=== PATIENT | male | born 1945 | race Caucasian/White ===

== ENCOUNTER → 2020-07-05 14:35 | Outpatient (BNVA) | payer OTHER, SELFPAY | PROVIDERS: PCP Internal Medicine; Visit Provider Hospitalist | DX: J44.9 Chronic obstructive pulmonary disease, unspecified (principal); J90 Pleural effusion, not elsewhere classified | CPT/HCPCS: 99212 ==

== ENCOUNTER → 2020-08-30 14:48 | Outpatient (BNVA) | payer OTHER, SELFPAY | PROVIDERS: PCP Internal Medicine; Visit Provider Hospitalist ==

== ENCOUNTER 2020-10-18 15:52 | Emergency (ER) | payer OTHER, SELFPAY ==
--- NOTE | 2020-10-18 | ECG_ITS ---
Test Reason : AMS Blood Pressure : / mmHG Vent. Rate : 072 BPM Atrial Rate : 072 BPM P-R Int : 202 ms QRS Dur : 134 ms QT Int : 412 ms P-R-T Axes : 000 -30 -20 degrees QTc Int : 451 ms Sinus rhythm with marked sinus arrhythmia Left axis deviation Right bundle branch block Inferior infarct , age undetermined Abnormal ECG No previous ECGs available Referred By: Generic ED Physician Electronically Signed By:DANUTA POLK
[2020-10-18 16:00] VITALS: BP 117/56; PULSE 71; RESP 12; TEMP 36.8; O2SAT 100; BMI 28.7
[2020-10-18 16:06] LABS: Glucose, Whole Blood 126 mg/dL (60-115)
--- NOTE | 2020-10-18 16:16 | ED_ITS ---
HPI - Altered Mental Status General Chief Complaint: Altered Mental Status Stated Complaint: UNRESPONSIVE Time Seen by Provider: 10/18/20 16:15 Source: EMS Mode of arrival: EMS Limitations: altered mental status History of Present Illness HPI narrative: Patient's history of dementia was at [facility] di scharged today to retirement after ureteric stent placement and UTI patient really is in the hospital but became back to baseline but while transferring to retirement patient became more confused and delirious brought to the ER for re-evaluation on arrival patient was sleepy arousable on verbal stimuli had some water in the ER Related Data Home Medications Medication Instructions Recorded Confirmed albuterol sulfate 90 mcg/actuation 2 puff INHALATION Q6H PRN 07/05/20 08/30/20 aerosol inhaler amlodipine 5 mg tablet 5 mg PO DAILY 07/05/20 08/30/20 docusate sodium 250 mg capsule 250 mg PO DAILY 07/05/20 08/30/20 duloxetine 30 mg capsule,delayed 30 mg PO DAILY 07/05/20 08/30/20 release gabapentin 600 mg tablet 600 mg PO DAILY 07/05/20 08/30/20 lidocaine 4 % topical patch 1 patch TOPICAL DAILY PRN 07/05/20 08/30/20 lisinopril 20 mg tablet 20 mg PO DAILY 07/05/20 07/05/20 omeprazole 20 mg capsule,delayed 20 mg PO DAILY 07/05/20 08/30/20 release oxycodone 5 mg tablet 5 mg PO Q8H PRN 07/05/20 08/30/20 tiotropium 2.5 mcg-olodaterol 2.5 2 puff INHALATION DAILY 07/05/20 08/30/20 mcg/actuation mist for inhalation trazodone 50 mg tablet 50 mg PO BEDTIME PRN 07/05/20 08/30/20 Allergies Allergy/AdvReac Type Severity Reaction Status Date / Time No Known Allergies Allergy Verified 08/30/20 16:28 Review of Systems Review of Systems: Yes Unobtainable due to mental status Neurologic: Reports confusion Psychiatric: Psychiatric: Reports confusion FOR[facility] Past Medical History Medical History Chronic respiratory failure COPD (chronic obstructive pulmonary disease) Pleural effusion Social History Social History Smoking Status: Former smoker Tobacco Type: Cigarette Years Smoked: 30 years Advance Directives: No Advance Directives Information Provided: Yes Physical Exam Vital Signs: Vital Signs: Last Vital Signs Temp 98.2 F 10/18/20 16:00 Pulse 74 10/18/20 18:13 Resp 20 10/18/20 18:13 BP 168/78 H 10/18/20 20:23 Pulse Ox 91 L 10/18/20 18:13 Oxygen Flow Rate 4 10/18/20 16:00 Body Mass Index 28.7 Const: General: no acute distress, confusion, lethargic and patient obtunded Orientation/consciousness: confusion, patient obtunded and lethargic HENMT: Head: Yes normocephalic and Yes atraumatic General nose exam: Normal external nose present Eyes: General: appearance normal, both eyes and all related structures Conjunctivae: conjunctivae normal Sclerae: sclerae normal Pupils: Equal, round and reactive pupils present Neck: Neck: Yes normal visual inspection and Yes full ROM Chest: Chest palpation & inspection: normal inspection of the chest and normal palpation of entire chest wall Resp: Effort & Inspection: normal respiratory effort Auscultation: clear to auscultation bilaterally, no crackles, no rales and no rhonchi Cardio: Palpation: normal PMI Rate: regular rate Rhythm: regular rhythm Heart sounds: S1 normal heart sound present and S2 normal heart sound present Bruits: Abdominal aortic bruit present Peripheral pulses: Peripheral pulses 2+ throughout GI: Inspection: Yes normal to inspection Palpation (GI): Abdominal aortic bruit present, Soft to palpation and nontender Auscultation: normal bowel sounds : General: Yes no CVA tenderness Back/Spine/Pelvis: Back: no CVA tenderness Thoracic/Lumbar Spine: thoracic and lumbar spine normal to inspection, No thoracic spinal tenderness and No lumbar spinal tenderness Skin: General skin exam: no rashes or lesions noted Neuro: General: confusion and patient obtunded Cranial nerves: Yes Equal, round and reactive pupils present and Yes Normal gag reflex present MDM - Altered Mental Status MDM Narrative Medical decision making narrative: Patient with status post Left ureteric stent placement/UTI on 10/09 just treated at [facility] for 1 week and transferred to rehab came back for being obtunded. On arrival patient was in deep sleep after few minutes he woke up and was communicating well at his baseline. Case discussed patient's daughter patient has similar episode when he was admitted at [facility] with UTI. Will keep him for observation overnight and plan to send him back to retirement in the morning at this time patient vitals and labs are stable Lab Data Result diagrams: 10/18/20 16:30 10/18/20 16:30 Labs: Lab Results 10/18/20 10/18/20 10/18/20 Range/Units 16:02 16:30 16:30 WBC 6.0 (4.8-10.8) X10*3/uL RBC 4.95 (4.60-5.80) X10*6/uL Hgb 13.0 L (14.0-18.0) g/dl Hct 42.7 (42-52) % MCV 86.3 (80-98) fL MCH 26.3 L (27.0-33.0) pg MCHC 30.4 L (31.0-36.0) g/dl RDW 13.9 (11.0-16.0) % Plt Count 290 (160-400) X10*3/uL MPV 10.2 (9.4-12.4) fL Immature Gran % (Auto) 0.3 (0.0-0.4) % Neut % (Auto) 78.7 H (45-73) % Lymph % (Auto) 8.3 L (20-40) % [place] % (Auto) 8.6 (2-11) % Eos % (Auto) 3.3 (0-4) % Baso % (Auto) 0.8 (0-2) % Lymph # (Auto) 0.5 L (1.2-4.9) X10*3/uL [place] # (Auto) 0.5 (0.1-1.2) X10*3/uL Eos # (Auto) 0.2 (0.0-0.4) X10*3/uL Baso # (Auto) 0.1 (0.0-0.2) X10*3/uL Abs Immat Gran (auto) 0.02 (0.00-0.03) X10*3/uL Absolute Neuts (auto) 4.8 (2.0-8.3) X10*3/uL Absolute Nucleated RBC 0.000 (0.0-0.012) X10*3/uL Nucleated RBC % (auto) 0.0 (0.0-0.2) /100WBC Smear Tech's Comments VERIFIED Sodium 143 (135-145) mmol/L Potassium 4.3 (3.3-5.1) mmol/L Chloride 104 (96-108) mmol/L Carbon Dioxide 29 (22-29) mmol/L Anion Gap 14 (12-20) BUN 15 (9-16) mg/dL Creatinine 0.70 (0.5-1.4) mg/dL Estim Creat Clear Calc 100.1 Estimated GFR > 60 POC Glucose 126 H (60-115) mg/dL Random Glucose 136 H (60-115) mg/dL Calcium 8.9 (8.4-10.2) mg/dL Total Bilirubin 0.5 (0.0-1.0) mg/dL AST 19 (5-37) U/L ALT 10 (0-40) U/L Alkaline Phosphatase 95 (39-117) U/L Total Protein 6.0 L (6.5-8.0) g/dL Albumin 3.4 L (3.5-5.0) g/dL Urine Color Urine Appearance Urine pH (5.0-8.0) Ur Specific [place] (1.005-1.025) Urine Protein (NEG-TRACE) MG/DL Urine Glucose (UA) (NEG) MG/DL Urine Ketones (NEG) MG/DL Urine Blood (NEG) Urine Nitrite (NEG) Ur Leukocyte Esterase (NEG) Urine RBC (0) /HPF Urine WBC (0-4) /HPF Ur Squamous Epith Cells /LPF Urine Bacteria /LPF Hyaline Casts /LPF Urine Mucus /LPF /12/03 Range/Units 17:06 WBC (4.8-10.8) X10*3/uL RBC (4.60-5.80) X10*6/uL Hgb (14.0-18.0) g/dl Hct (42-52) % MCV (80-98) fL MCH (27.0-33.0) pg MCHC (31.0-36.0) g/dl RDW (11.0-16.0) % Plt Count (160-400) X10*3/uL MPV (9.4-12.4) fL Immature Gran % (Auto) (0.0-0.4) % Neut % (Auto) (45-73) % Lymph % (Auto) (20-40) % [place] % (Auto) (2-11) % Eos % (Auto) (0-4) % Baso % (Auto) (0-2) % Lymph # (Auto) (1.2-4.9) X10*3/uL [place] # (Auto) (0.1-1.2) X10*3/uL Eos # (Auto) (0.0-0.4) X10*3/uL Baso # (Auto) (0.0-0.2) X10*3/uL Abs Immat Gran (auto) (0.00-0.03) X10*3/uL Absolute Neuts (auto) (2.0-8.3) X10*3/uL Absolute Nucleated RBC (0.0-0.012) X10*3/uL Nucleated RBC % (auto) (0.0-0.2) /100WBC Smear Tech's Comments Sodium (135-145) mmol/L Potassium (3.3-5.1) mmol/L Chloride (96-108) mmol/L Carbon Dioxide (22-29) mmol/L Anion Gap (12-20) BUN (9-16) mg/dL Creatinine (0.5-1.4) mg/dL Estim Creat Clear Calc Estimated GFR POC Glucose (60-115) mg/dL Random Glucose (60-115) mg/dL Calcium (8.4-10.2) mg/dL Total Bilirubin (0.0-1.0) mg/dL AST (5-37) U/L ALT (0-40) U/L Alkaline Phosphatase (39-117) U/L Total Protein (6.5-8.0) g/dL Albumin (3.5-5.0) g/dL Urine Color BROWN Urine Appearance CLOUDY Urine pH 5.5 (5.0-8.0) Ur Specific [place] 1.025 (1.005-1.025) Urine Protein 2+ H (NEG-TRACE) MG/DL Urine Glucose (UA) NEG (NEG) MG/DL Urine Ketones NEG (NEG) MG/DL Urine Blood 3+ H (NEG) Urine Nitrite NEG (NEG) Ur Leukocyte Esterase 1+ H (NEG) Urine RBC TNTC H (0) /HPF Urine WBC 1-4 (0-4) /HPF Ur Squamous Epith Cells TRACE /LPF Urine Bacteria NONE /LPF Hyaline Casts 0-2 /LPF Urine Mucus TRACE /LPF Discharge Plan Discharge Clinical Impression: Delirium due to general medical condition Patient Disposition: Xfer [facility] Instructions: Altered Mental Status (ED) Additional Instructions: Patient's symptoms are from metabolic encephalopathy from recent hospitalization continue patient treatment as advised from [facility] and watch his vitals Prescriptions: No Action Stiolto Respimat 2.5-2.5 mcg/actuation mist 2 puff inhalation DAILY RF: 0 albuterol sulfate [ProAir HFA] 90 mcg/actuation HFA aerosol inhaler 2 puff inhalation Q6H PRNRF: 0 oxycodone 5 mg tablet 5 mg PO Q8H PRNRF: 0 gabapentin 600 mg tablet 600 mg PO DAILY RF: 0 trazodone 50 mg tablet 50 mg PO BEDTIME PRNRF: 0 duloxetine 30 mg capsule,delayed release(DR/EC) 30 mg PO DAILY RF: 0 lisinopril 20 mg tablet 20 mg PO DAILY RF: 0 amlodipine 5 mg tablet 5 mg PO DAILY RF: 0 omeprazole 20 mg capsule,delayed release(DR/EC) 20 mg PO DAILY RF: 0 docusate sodium 250 mg capsule 250 mg PO DAILY RF: 0 lidocaine 4 % adhesive patch,medicated 1 patch topical DAILY PRNRF: 0
[2020-10-18 16:39] VITALS: BP 131/66; PULSE 70; RESP 18; O2SAT 92
[2020-10-18 16:41] LABS: Basophils Absolute Auto 0.1 X10*3/uL (0.0-0.2); Basophils Percent Auto 0.8 % (0-2); Eosinophils Absolute Auto 0.2 X10*3/uL (0.0-0.4); Eosinophils Percent Auto 3.3 % (0-4); Hematocrit 42.7 % (42-52); Imm Gran Abs Auto 0.02 X10*3/uL (0.00-0.03); Imm Gran Pct Auto 0.3 % (0.0-0.4); Lymphocytes Absolute Auto 0.5 X10*3/uL (1.2-4.9); Lymphocytes Percent Auto 8.3 % (20-40); MANUAL DIFF FLAG SCAN; Mean Corpuscular HGB Conc 30.4 g/dl (31.0-36.0); Mean Corpuscular Hemoglobin 26.3 pg (27.0-33.0); Mean Corpuscular Volume 86.3 fL (80-98); Mean Platelet Volume 10.2 fL (9.4-12.4); Monocytes Absolute Auto 0.5 X10*3/uL (0.1-1.2); Monocytes Percent Auto 8.6 % (2-11); Neutrophils Absolute Auto 4.8 X10*3/uL (2.0-8.3); Neutrophils Percent Auto 78.7 % (45-73); Platelet Count 290 X10*3/uL (160-400); Red Blood Count 4.95 X10*6/uL (4.60-5.80); Red Cell Distribution Width 13.9 % (11.0-16.0); SCAN SMEAR FLAG 1
[2020-10-18] MEDS: 0.9 % Sodium Chloride 1,000 ML 999 ML IVCONT (17:02)
[2020-10-18 17:09] LABS: SLIDE REVIEW VERIFIED
[2020-10-18 17:12] LABS: Alanine Aminotransferase 10 U/L (0-40); Albumin Level 3.4 g/dL (3.5-5.0); Alkaline Phosphatase 95 U/L (39-117); Anion Gap 14 (12-20); Aspartate Amino Transferase 19 U/L (5-37); Bilirubin Total 0.5 mg/dL (0.0-1.0); Blood Urea Nitrogen 15 mg/dL (9-16); Calcium 8.9 mg/dL (8.4-10.2); Carbon Dioxide 29 mmol/L (22-29); Chloride 104 mmol/L (96-108); Creatinine Clr Calc Pharmacy 100.1; Estimated Glomerular Filt Rate > 60; Glucose Random 136 mg/dL (60-115); Potassium 4.3 mmol/L (3.3-5.1); Sodium 143 mmol/L (135-145)
[2020-10-18 17:21] LABS: Glucose Urine UA NEG (NEG); Leukocyte Esterase Urine 1+ (NEG); Nitrite Urine NEG (NEG); PH 5.5 (5.0-8.0); Specific Gravity - Urine 1.025 (1.005-1.025); UACC Culture Trigger YES; Urine Blood 3+ (NEG); Urine Ketones NEG (NEG); Urine Protein 2+ MG/DL (NEG-TRACE)
[2020-10-18 17:22] LABS: Appearance Urine CLOUDY; Color Urine BROWN
[2020-10-18 17:39] LABS: Hyaline Casts Urine 0-2 /LPF; Mucus Urine TRACE /LPF; RBC Urine TNTC /HPF (0); Squamous Epithelial Cell Urine TRACE /LPF
[2020-10-18 18:13] VITALS: BP 152/83; PULSE 74; RESP 20; O2SAT 91
--- NOTE | 2020-10-18 18:16 | MHC.CM.ED ---
CM met with pt at request of . Pt was d/c from [facility] today s/p ureteral stent/UTI with referral to [facility] for STR. CM spoke with Sharon RN at [facility], who stated that when pt arrived at [facility], he was unresponsive, even to sternal rub. Sharon told CM that the physician at [facility] did not want to accept pt and they sent the patient to [facility] [place] for [place]. Per Sharon, pt needs work up and observation overnight before [facility] can accept in the am. Will place return referral in [employer]. Dr. Land aware. Pt to remain overnight in ED for observation with hopeful return to [facility] tomorrow. Pt. is alert and orientated to person and place, but doesn't remember why he came to the ED. Pt was unsure of why he was going to rehab. Pt was at home prior to [facility] admission. Pt is a of [employer] and has Vet insurance and care at [facility]. Uses [facility] [place] and the [facility] on [address] Lives with , daughter and her family. Spoke with Zohra Rj ([phone]), daughter/HCP (not on file) who tells CM that her father is slightly confused at times and that he was going to [facility] for PT. States he uses a cane and walker at home and uses Home oxygen at 2L via N/C. Dr. Land notified of home Oxygen needs. D/C plan is to return to [facility] tomorrow. Transportation provided by S. CM to follow for d/c needs.
[2020-10-18 20:23] VITALS: BP 168/78
--- NOTE | 2020-10-18 22:18 | PC.NURSE ---
PT RUT, HAD JUST BEEN D/C'D FROM [facility] ED WHERE ADMITTED FOR URETERAL STENT PLACEMENT, PER [facility] RN WHO WAS TAKING CARE OF PT STAY WAS COMPLICATED BY UTI WHICH CAUSED PT TO BECOME DELIRIOUS, SX'S THEN RESOLVED AFTER IV ABX, PT D/C'D TO REHAB. JUST PRIOR TO REHAB ARRIVAL PER EMS PT BECAME UNRESPONSIVE , PT NOT ACCEPTED BY REHAB FACILITY, BROUGHT TO THIS ED. UPON ARRIVAL TO THIS ED PT LYING S/F IN BED, RR EVEN UNLABORED, SKIN WPD, PERRLA, VSS. PT NOT RESPONDING TO VERBAL OR TACTILE STIMULI, IV ESTABLISHED AND LABS DRAWN. PT THEN OPENED EYES SPONTANEOUSLY, TRACKING WITH EYES, ANSWERING QUESTIONS APPROPRIATELY. PT OFFERED NO COMPLAINTS. THIS RN SPOKE W/ PT'S DTR WHO ADVISED PRIOR TO HOSPITAL STAY LIVED WITH HER INDEPENDENT AT HOME, HAS BASELINE DEMENTIA BUT GENERALLY ORIENTED X2. SINCE SPONTANEOUS EYE OPENING PT HAS REMAINED AWAKE, INTERACTING APPROPRIATELY, DRINKING LIQUIDS WITHOUT DIFFICULTY, USING URINAL ON OWN W/OUT DIFFICULTY. PT REMAINS IN NAD, VSS, PENDING DISPO.
[2020-10-19 02:07] VITALS: BP 178/87; PULSE 87; RESP 16; O2SAT 95
--- NOTE | 2020-10-19 05:01 | PC.NURSE ---
Throughout shift, patient is able to answer questions appropriately when prompted/asked by staff. 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 Pt is calm/cooperative with staff. Required linen change for small amount of urinary incontinence despite reminders to use urinal or call arriola for assistance. Vital signs stable. Plan for SNF placement, likely to return to [facility]. This RN called for medication list for med rec. Awaiting fax from staff at [facility]. Pt does not recall all medications for this RN to properly enter med rec. Will continue to monitor.
== END 2020-10-19 12:01 ==
PROVIDERS: Emergency Provider Internal Medicine; PCP Internal Medicine
DX: F05 Delirium due to known physiological condition (principal); G93.41 Metabolic encephalopathy; J44.9 Chronic obstructive pulmonary disease, unspecified; J96.10 Chronic respiratory failure, unspecified whether with hypoxia or hypercapnia; F03.90 Unspecified dementia, unspecified severity, without behavioral disturbance, psychotic disturbance, mood disturbance, and anxiety; Z87.440 Personal history of urinary (tract) infections; Z99.81 Dependence on supplemental oxygen; Z79.899 Other long term (current) drug therapy
CPT/HCPCS: 36415; 80053; 81001; 81003; 82947; 85025; 87086; 93005; 96360; 99285

== ENCOUNTER 2021-01-11 11:36 | Outpatient (REF) | payer MEDICARE, OTHER, SELFPAY ==
[2021-01-11 13:59] LABS: Glucose Urine UA NEG (NEG); Leukocyte Esterase Urine 1+ (NEG); Nitrite Urine NEG (NEG); Urine Blood NEG (NEG); Urine Ketones NEG (NEG); Urine Protein NEG (NEG-TRACE)
[2021-01-11 14:04] LABS: Appearance Urine HAZY; Color Urine YELLOW
[2021-01-11 14:29] LABS: Calcium Oxalate Crystals Urine 3+ /LPF; RBC Urine 0 /HPF (0)
== END 2021-01-11 11:37 | disposition home or self-care (01) ==
LOC: HO.HMGCLNP 11:36
PROVIDERS: Visit Provider Internal Medicine
DX: N39.0 Urinary tract infection, site not specified (principal)
CPT/HCPCS: 81001; 81003

== ENCOUNTER 2021-03-05 15:15 | Emergency (ER) | payer OTHER, SELFPAY ==
--- NOTE | ~2021-03-05 | XR_ITS ---
EXAMINATION: XR CHEST CLINICAL INFORMATION: Shortness of breath COMPARISON: July 01, 2019 and April 20, 2019 TECHNIQUE: AP portable view of the chest was obtained. FINDINGS: There is chronic pleural-parenchymal scarring seen at the left base. A hiatal hernia is seen. Patient status post bilateral shoulder arthroplasties. There has been decompressive surgery about the distal right clavicle. There is no evidence of acute parenchymal disease, pneumothorax, or significant pleural effusion. Heart normal size. No evidence of pulmonary edema. XR/XR chest 1V IMPRESSION: No acute disease.
[2021-03-05 15:24] VITALS: BP 175/125; PULSE 118; O2SAT 98
[2021-03-05 15:51] VITALS: BMI 28.1
--- NOTE | 2021-03-05 15:55 | ED_ITS ---
HPI - General Adult General Chief complaint: Dyspnea Stated complaint: sob x 23 mins Time Seen by Provider: 03/05/21 15:52 Source: patient History of Present Illness HPI narrative: This is a 76-year-old male with history of COPD as well as distant history of bilateral hip replacement, who was noted by visiting nurse to seem short of breath today. Patient denies feeling short of breath now. He states he has had similar symptoms about 5 years, denies feeling worse today. He does have a nebulizer machine at home does not use it. He denies any history of heart failure. He denies any cough or fever. Does have dizziness but is able to get around at home-he states he has been dizzy for about a year. Denies any swelling in his feet or ankle. Denies abdominal pain and states his appetite has been excellent Related Data Home Medications Medication Instructions Recorded Confirmed Unobtainable 10/19/20 10/19/20 Allergies Allergy/AdvReac Type Severity Reaction Status Date / Time No Known Allergies Allergy Verified 08/30/20 16:28 Review of Systems Review of Systems: Yes all other systems are reviewed and are negative Constitutional: Constitutional: Reports as per HPI Eyes: Eyes: Reports as per HPI and Reports no additional eye complaints ENT: Reports system reviewed and no additional complaints, except as documented, Reports as per HPI, Denies nasal congestion, Denies nasal discharge and Denies sore throat Cardiovascular: Cardiovascular: Reports as per HPI, Denies chest pain and Reports dyspnea Respiratory: Respiratory: Reports as per HPI, Denies cough and Reports dyspnea Gastrointestinal: Gastrointestinal: Reports as per HPI, Denies abdominal pain, Denies diarrhea and Denies vomiting Genitourinary: Genitourinary: Reports as per HPI, Denies hematuria, Denies dysuria and Denies urinary frequency Musculoskeletal: Musculoskeletal: Denies numbness Comments: Chronic hip pain Integumentary/Breasts: Skin/Breast: Reports as per HPI and Denies rash Neurologic: Reports as per HPI, Denies focal weakness, Denies numbness and D enies Sensory deficit (Neuro) Comments: Dizziness Psychiatric: Psychiatric: Reports no additional psychiatric complaints and Reports as per HPI Endocrine: Endocrine: Reports no additional endocrine complaints and Reports as per HPI Hematologic/Lymphatic: Hematologic/Lymphatic: Reports no additional hematologic/lymphatic complaints, Reports as per HPI and Reports other (No peripheral edema) [facility] Past Medical History Medical History Chronic respiratory failure COPD (chronic obstructive pulmonary disease) Pleural effusion Social History Social History Alcohol intake: unknown Years Smoked: 30 years Advance Directives: No Advance Directives Information Provided: No Physical Exam Vital Signs: Vital Signs: Last Vital Signs Temp 98 F 03/05/21 16:47 Pulse 65 03/05/21 16:47 Resp 18 03/05/21 16:47 BP 153/90 H 03/05/21 16:47 Pulse Ox 95 03/05/21 16:47 Body Mass Index 28.1 Const: Other: Patient is somewhat hard of hearing, seems a little forgetful, but is not ill-appearing, respirations normal General: cooperative, no acute distress and alert Orientation/consciousness: patient oriented x3 HENMT: Head: Yes normal to inspection Eyes: General: appearance normal, both eyes and all related structures Eyelids: Yes eyelids normal Conjunctivae: conjunctivae normal Pupils: Equal, round and reactive pupils present Neck: Neck: Yes normal visual inspection and Yes supple Chest: Chest palpation & inspection: normal inspection of the chest Resp: Effort & Inspection: normal respiratory effort Auscultation: clear to auscultation bilaterally Cardio: Rate: regular rate Rhythm: regular rhythm Heart sounds: S1 normal heart sound present, S2 normal heart sound present, no gallops, no murmurs and no rubs GI: Palpation (GI): Soft to palpation, nontender and Other GI palpation findings present (Non-distended) Auscultation: normal bowel sounds Skin: General skin exam: no rashes or lesions noted Neuro: General: patient oriented x3, no focal motor deficits and CN's II-XI intact bilaterally Cranial nerves: Yes Equal, round and reactive pupils present Cognition (Neuro): normal cognition Motor exam (neuro): 5/5 motor strength present throughout Sensory Exam: No Sensory deficit (Neuro) Extrem: General: Yes normal to inspection and Yes no pedal edema Psych: Appearance: grossly normal Affect: normal affect Medical Decision Making MDM Narrative Medical decision making narrative: Upon re-evaluation at 17:40, the patient states that he usually takes Oxy code own 5 mg every 6 hours for his chronic pain. He states he has had dizziness for some time but he thinks it is worse recently. States that he has a visiting nurse who checks on him 3 times a week, but is not sure why he was sent in. He livesat home with his and daughter Patient has good air movement on exam, oxygen saturation 95%, chest x-ray negative. Labs without any concerning findings. Patient complains of dizziness but states this has been present for some time. Patient appears safe for outpatient follow-up Lab Data Result diagrams: 03/05/21 16:57 03/05/21 16:57 Labs: Lab Results 03/05/21 03/05/21 03/05/21 Range/Units 16:57 16:57 16:57 WBC 5.5 (4.8-10.8) X10*3/uL RBC 4.93 (4.60-5.80) X10*6/uL Hgb 12.9 L (14.0-18.0) g/dl Hct 40.9 L (42-52) % MCV 83.0 (80-98) fL MCH 26.2 L (27.0-33.0) pg MCHC 31.5 (31.0-36.0) g/dl RDW 14.6 (11.0-16.0) % Plt Count 312 (160-400) X10*3/uL MPV 9.5 (9.4-12.4) fL Immature Gran % (Auto) 0.4 (0.0-0.4) % Neut % (Auto) 72.6 (45-73) % Lymph % (Auto) 14.0 L (20-40) % [place] % (Auto) 9.6 (2-11) % Eos % (Auto) 2.5 (0-4) % Baso % (Auto) 0.9 (0-2) % Lymph # (Auto) 0.8 L (1.2-4.9) X10*3/uL [place] # (Auto) 0.5 (0.1-1.2) X10*3/uL Eos # (Auto) 0.1 (0.0-0.4) X10*3/uL Baso # (Auto) 0.1 (0.0-0.2) X10*3/uL Abs Immat Gran (auto) 0.02 (0.00-0.03) X10*3/uL Absolute Neuts (auto) 4.0 (2.0-8.3) X10*3/uL Absolute Nucleated RBC 0.020 H (0.0-0.012) X10*3/uL Nucleated RBC % (auto) 0.4 H (0.0-0.2) /100WBC Sodium 143 (135-145) mmol/L Potassium 3.4 D (3.3-5.1) mmol/L Chloride 106 (96-108) mmol/L Carbon Dioxide 26 (22-29) mmol/L Anion Gap 14 (12-20) BUN 11 (9-16) mg/dL Creatinine 0.63 (0.5-1.4) mg/dL Estim Creat Clear Calc 98.8 Estimated GFR > 60 Random Glucose 104 (60-115) mg/dL Calcium 8.8 (8.4-10.2) mg/dL Total Bilirubin 0.3 (0.0-1.0) mg/dL AST 13 (5-37) U/L ALT 9 (0-40) U/L Alkaline Phosphatase 88 (39-117) U/L Total Protein 5.8 L (6.5-8.0) g/dL Albumin 3.5 (3.5-5.0) g/dL Urine Color Urine Appearance Urine pH (5.0-8.0) Ur Specific [place] (1.005-1.025) Urine Protein (NEG-TRACE) MG/DL Urine Glucose (UA) (NEG) MG/DL Urine Ketones (NEG) MG/DL Urine Blood (NEG) Urine Nitrite (NEG) Ur Leukocyte Esterase (NEG) COVID-19 (SCOTTY) Negative (Negative) COVID-19 Clin Com See Note 03/05/21 Range/Units 18:01 WBC (4.8-10.8) X10*3/uL RBC (4.60-5.80) X10*6/uL Hgb (14.0-18.0) g/dl Hct (42-52) % MCV (80-98) fL MCH (27.0-33.0) pg MCHC (31.0-36.0) g/dl RDW (11.0-16.0) % Plt Count (160-400) X10*3/uL MPV (9.4-12.4) fL Immature Gran % (Auto) (0.0-0.4) % Neut % (Auto) (45-73) % Lymph % (Auto) (20-40) % [place] % (Auto) (2-11) % Eos % (Auto) (0-4) % Baso % (Auto) (0-2) % Lymph # (Auto) (1.2-4.9) X10*3/uL [place] # (Auto) (0.1-1.2) X10*3/uL Eos # (Auto) (0.0-0.4) X10*3/uL Baso # (Auto) (0.0-0.2) X10*3/uL Abs Immat Gran (auto) (0.00-0.03) X10*3/uL Absolute Neuts (auto) (2.0-8.3) X10*3/uL Absolute Nucleated RBC (0.0-0.012) X10*3/uL Nucleated RBC % (auto) (0.0-0.2) /100WBC Sodium (135-145) mmol/L Potassium (3.3-5.1) mmol/L Chloride (96-108) mmol/L Carbon Dioxide (22-29) mmol/L Anion Gap (12-20) BUN (9-16) mg/dL Creatinine (0.5-1.4) mg/dL Estim Creat Clear Calc Estimated GFR Random Glucose (60-115) mg/dL Calcium (8.4-10.2) mg/dL Total Bilirubin (0.0-1.0) mg/dL AST (5-37) U/L ALT (0-40) U/L Alkaline Phosphatase (39-117) U/L Total Protein (6.5-8.0) g/dL Albumin (3.5-5.0) g/dL Urine Color YELLOW Urine Appearance CLEAR Urine pH 6.5 (5.0-8.0) Ur Specific [place] 1.020 (1.005-1.025) Urine Protein NEG (NEG-TRACE) MG/DL Urine Glucose (UA) NEG (NEG) MG/DL Urine Ketones 15 (NEG) MG/DL Urine Blood NEG (NEG) Urine Nitrite NEG (NEG) Ur Leukocyte Esterase NEG (NEG) COVID-19 (SCOTTY) (Negative) COVID-19 Clin Com Imaging Data Chest x-ray: Radiologist's impression: IMPRESSION: No acute disease. ? Discharge Plan Discharge Clinical Impression: COPD (chronic obstructive pulmonary disease), Chronic pain Patient Disposition: Home, Self-Care Instructions: Chronic Pain (ED), COPD (Chronic Obstructive Pulmonary Disease) (ED) Additional Instructions: Taking medications as usual. Follow up with her primary care physician. Return for any new or worsened symptoms. Prescriptions: No Action Unobtainable RF: 0
[2021-03-05 16:47] VITALS: BP 153/90; PULSE 65; RESP 18; TEMP 36.6; O2SAT 95
[2021-03-05 17:04] LABS: MANUAL DIFF FLAG NO
[2021-03-05 17:06] LABS: Basophils Absolute Auto 0.1 X10*3/uL (0.0-0.2); Basophils Percent Auto 0.9 % (0-2); Eosinophils Absolute Auto 0.1 X10*3/uL (0.0-0.4); Eosinophils Percent Auto 2.5 % (0-4); Hematocrit 40.9 % (42-52); Hemoglobin 12.9 g/dl (14.0-18.0); Imm Gran Abs Auto 0.02 X10*3/uL (0.00-0.03); Imm Gran Pct Auto 0.4 % (0.0-0.4); Lymphocytes Absolute Auto 0.8 X10*3/uL (1.2-4.9); Mean Corpuscular HGB Conc 31.5 g/dl (31.0-36.0); Mean Corpuscular Hemoglobin 26.2 pg (27.0-33.0); Mean Platelet Volume 9.5 fL (9.4-12.4); Monocytes Absolute Auto 0.5 X10*3/uL (0.1-1.2); Monocytes Percent Auto 9.6 % (2-11); NRBC Pct Auto 0.4 /100WBC (0.0-0.2); Neutrophils Percent Auto 72.6 % (45-73); Platelet Count 312 X10*3/uL (160-400); Red Blood Count 4.93 X10*6/uL (4.60-5.80); Red Cell Distribution Width 14.6 % (11.0-16.0); White Blood Count 5.5 X10*3/uL (4.8-10.8)
[2021-03-05 17:23] LABS: COVID-19 Test Negative (Negative)
[2021-03-05 17:25] LABS: Alanine Aminotransferase 9 U/L (0-40); Albumin Level 3.5 g/dL (3.5-5.0); Alkaline Phosphatase 88 U/L (39-117); Anion Gap 14 (12-20); Aspartate Amino Transferase 13 U/L (5-37); Bilirubin Total 0.3 mg/dL (0.0-1.0); Blood Urea Nitrogen 11 mg/dL (9-16); Calcium 8.8 mg/dL (8.4-10.2); Carbon Dioxide 26 mmol/L (22-29); Chloride 106 mmol/L (96-108); Creatinine Clr Calc Pharmacy 98.8; Estimated Glomerular Filt Rate > 60; Glucose Random 104 mg/dL (60-115); Potassium 3.4 mmol/L (3.3-5.1); Sodium 143 mmol/L (135-145); Total Protein 5.8 g/dL (6.5-8.0)
[2021-03-05 18:09] LABS: Appearance Urine CLEAR; Color Urine YELLOW; Glucose Urine UA NEG (NEG); Leukocyte Esterase Urine NEG (NEG); Nitrite Urine NEG (NEG); PH 6.5 (5.0-8.0); Urine Blood NEG (NEG); Urine Ketones 15 MG/DL (NEG); Urine Protein NEG (NEG-TRACE)
[2021-03-05] MEDS: oxyCODONE HCl Immed Release 5 MG TABLET PO (18:18)
== END 2021-03-05 23:32 | disposition home or self-care (01) ==
PROVIDERS: Emergency Provider Emergency Medicine
DX: J44.9 Chronic obstructive pulmonary disease, unspecified (principal); R06.00 Dyspnea, unspecified; G89.29 Other chronic pain; Z20.822 Contact with and (suspected) exposure to COVID-19
CPT/HCPCS: 36415; 71045; 80053; 81003; 85025; 87635; 99283; 99284